=== PATIENT | female | born 1965 | race Caucasian/White ===

== ENCOUNTER 2017-08-24 14:46 | Emergency (ER) | payer OTHER ==
[2017-08-24 15:00] VITALS: BP 138/82; PULSE 72; RESP 18; TEMP 98.2; O2SAT 97
== END 2017-08-24 15:35 | disposition left against medical advice (07) ==
DX: Z53.21 Procedure and treatment not carried out due to patient leaving prior to being seen by health care provider (principal)

== ENCOUNTER 2017-08-25 12:03 | Emergency (ER) | payer BC, OTHER ==
[2017-08-25 12:20] VITALS: TEMP 97.9
--- NOTE | 2017-08-25 12:29 | CPEKG ---
Heart Rate: 73 RR Interval: 822 P-R Interval: 176 QRSD Interval: 90 QT Interval: 404 QTC Interval: 446 P Uneeda: 82 QRS [place]eda: 59 T Wave Uneeda: 53 EKG Severity - BORDERLINE ECG - EKG Impression: SINUS RHYTHM EKG Impression: PROBABLE LEFT ATRIAL ABNORMALITY Electronically Signed By: Guero Vasquez 25-Aug-2017 13:51:09
--- NOTE | 2017-08-25 12:37 | EDPHY ---
H & P Stated Complaint: CP and palpitations Time Seen by Provider: 08/25/17 12:37 HPI/ROS: CHIEF COMPLAINT: Palpitations, chest pain HISTORY OF PRESENT ILLNESS: The patient presents to the ED with complaints of intermittent palpitations. These have been occurring intermittently for the past several weeks. The patient does have a history of paroxysmal atrial fibrillation. She developed recurrent palpitations yesterday. She took Rythmol at the onset of her symptoms. She came to the emergency department last night however like did not check and when her blood pressure and heart rate were found to be normal in triage. The patient returns to the ED today because she has continued to have mild hypertension with a systolic blood pressure in the 140-150 range. She has had some very vague nonexertional chest discomfort. She currently is asymptomatic. She denies pleuritic chest pain, asymmetric calf pain or swelling, fever, cough or congestion. The patient takes no other medications for high blood pressure. She has no history of coronary artery disease. REVIEW OF SYSTEMS: A comprehensive 10 point review of systems is otherwise negative aside from elements mentioned in the history of present illness. Source: Patient Exam Limitations: No limitations - Personal History Current Tetanus/Diphtheria Vaccine: Unsure Current Tetanus Diphtheria and Acellular Pertussis (TDAP): Unsure - Medical/Surgical History Hx Asthma: No Hx Chronic Respiratory Disease: No Hx Diabetes: No Hx Cardiac Disease: No Hx Renal Disease: No Hx Cirrhosis: No Hx Alcoholism: No Hx HIV/AIDS: No Hx Splenectomy or Spleen Trauma: No Other PMH: PMH: depresion, melanoma, afib. PSH: hyst, nasal, breast implants, tooth implants, - Social History Smoking Status: Never smoked - Physical Exam Exam: General Appearance: Alert, no distress Eyes: Pupils equal and round no pallor or injection ENT, Mouth: Mucous membranes moist Respiratory: There are no retractions, lungs are clear to auscultation Cardiovascular: Regular rate and rhythm Gastrointestinal: Abdomen is soft and nontender, no masses, bowel sounds normal Neurological: A&O, normal motor function, normal sensory exam, normal cranial nerves Skin: Warm and dry, no rashes Musculoskeletal: Neck is supple nontender Extremities: symmetrical, full range of motion Constitutional: Initial Vital Signs Temperature (C) 36.6 C 08/25/17 12:06 Heart Rate 78 08/25/17 12:06 Respiratory Rate 20 08/25/17 12:06 Blood Pressure 117/75 08/25/17 12:06 O2 Sat (%) 92 08/25/17 12:06 O2 Delivery Mode Room Air Allergies/Adverse Reactions: No Known Allergies Allergy (Verified 08/25/17 12:05) Home Medications: Medication Instructions Recorded Citalopram Hydrobromide [celeXA 10 10 mg PO DAILY 08/24/17 MG] Propafenone HCl [Rythmol 150mg (*)] 150 mg PO 08/24/17 Medical Decision Making - Diagnostics EKG Interpretation: EKG: Complete interpretation has been separately recorded in the [employer] archive. Summary impression: Sinus rhythm, left atrial abnormality ED Course/Re-evaluation: The patient presents to the ED with palpitations, atypical chest pain and slightly elevated blood pressure the prior to arrival. The patient arrives and is in no acute distress. She has a normal blood pressure upon arrival. Her EKG demonstrates no evidence of ischemia. The patient was placed on a monitoring manager without any arrhythmia notice. The patient is noted to have a normal troponin. The patient has no clinical evidence of a PE or DVT. At this point time I do feel the patient can follow up with her regular physician in [place], [place]. She has been advised to return to the ED for markedly worsening symptoms or other concerns. Differential Diagnosis: Differential diagnosis considered includes arrhythmia, acute coronary syndrome, hypertensive emergency, hypertensive urgency - Data Points Laboratory Results: Laboratory Results 08/25/17 12:25 08/25/17 12:25 08/25/17 08/25/17 12:25 12:25 WBC 5.79 10^3/uL 10^3/uL (3.80-9.50) RBC 4.27 10^6/uL 10^6/uL (4.18-5.33) Hgb 13.1 g/dL g/dL (12.6-16.3) Hct 38.8 % % (38.0-47.0) MCV 90.9 fL fL (81.5-99.8) MCH 30.7 pg pg (27.9-34.1) MCHC 33.8 g/dL g/dL (32.4-36.7) RDW 13.1 % % (11.5-15.2) Plt Count 244 10^3/uL 10^3/uL (150-400) MPV 9.6 fL fL (8.7-11.7) Neut % (Auto) 68.8 % % (39.3-74.2) Lymph % (Auto) 24.2 % % (15.0-45.0) [place] % (Auto) 5.5 % % (4.5-13.0) Eos % (Auto) 0.3 % L % (0.6-7.6) Baso % (Auto) 0.7 % % (0.3-1.7) Nucleat RBC Rel Count 0.0 % % (0.0-0.2) Absolute Neuts (auto) 3.98 10^3/uL 10^3/uL (1.70-6.50) Absolute Lymphs (auto) 1.40 10^3/uL 10^3/uL (1.00-3.00) Absolute Monos (auto) 0.32 10^3/uL 10^3/uL (0.30-0.80) Absolute Eos (auto) 0.02 10^3/uL L 10^3/uL (0.03-0.40) Absolute Basos (auto) 0.04 10^3/uL 10^3/uL (0.02-0.10) Absolute Nucleated RBC 0.00 10^3/uL 10^3/uL (0-0.01) Immature Gran % 0.5 % % (0.0-1.1) Immature Gran # 0.03 10^3/uL 10^3/uL (0.00-0.10) Sodium 138 mEq/L mEq/L (135-145) Potassium 3.6 mEq/L mEq/L (3.5-5.2) Chloride 99 mEq/L mEq/L (97-110) Carbon Dioxide 26 mEq/l mEq/l (22-31) Anion Gap 13 mEq/L mEq/L (8-16) BUN 6 mg/dL L mg/dL (7-23) Creatinine 0.5 mg/dL L mg/dL (0.6-1.0) Estimated GFR > 60 Glucose 125 mg/dL H mg/dL (70-100) Calcium 9.3 mg/dL mg/dL (8.5-10.4) Troponin I < 0.012 ng/mL ng/mL (0.000-0.034) Departure - Departure Disposition: Home, Routine, Self-Care Clinical Impression: Palpitations, Chest pain Condition: Good Instructions: Heart Palpitations (ED) Additional Instructions: 1. Please follow-up with your primary care provider for a blood pressure recheck within the week. 2. Return to the ED for markedly worsening symptoms, heart rate persistently over 100, worsening chest pain or other concerns. 3. The monitoring in the emergency department and blood testing demonstrate no obvious arrhythmia or cardiac damage. Referrals: BRYON WHITTINGTON [Other] - As per Instructions
[2017-08-25 12:46] LABS: PLATELET COUNT 244 10^3/uL (150-400)
[2017-08-25 13:21] VITALS: BP 112/80; PULSE 68; RESP 16; O2SAT 95
== END 2017-08-25 13:30 | disposition home or self-care (01) ==
DX: R00.2 Palpitations (principal); R07.9 Chest pain, unspecified